=== PATIENT | male | born 1960 | race Caucasian/White ===

== ENCOUNTER 2017-08-07 09:01 | Emergency (ER) | payer BC, OTHER ==
[2017-08-07 09:17] VITALS: BP 126/79
--- NOTE | 2017-08-07 09:39 | UC ---
Skin Complaint HPI - HPI Summary HPI Summary: WOKE UP ONE MORNING ABOUT A MONTH AGO AND NOTICED A BUMP ON RIGHT MIDDLE FINGER. TENDER WHEN PRESSED. NO TRAUMA HE CAN REMEMBER. WORKS AT A [employer]. MOVED A LOT OF LUMBER, METAL ETC. WONDERS IF THERE IS A FB IN THERE. NO NUMBNESS OR TINGLING. - History of Current Complaint Chief Complaint: UCGeneralIllness Time Seen by Provider: 08/07/17 09:20 Stated Complaint: FB IN FINGER Hx Obtained From: Patient Onset/Duration: Sudden Onset, Lasting Weeks, Still Present Timing: Constant Onset Severity: Mild Current Severity: Mild Pain Intensity: 0 - NO PAIN UNLESS PRESSED ON Pain Scale Used: 0-10 Numeric Location: Discrete - RIGHT 3RD FINGER Aggravating Factor(s): Touch Alleviating Factor(s): Nothing Associated Signs & Symptoms: Positive: Tenderness - Allergy/Home Medications Allergies/Adverse Reactions: Allergies Allergy/AdvReac Type Severity Reaction Status Date / Time No Known Allergies Allergy Verified 02/04/17 12:32 Review of Systems Constitutional: Negative Skin: Other - BUMP RIGHT 3RD FINGER Respiratory: Negative Cardiovascular: Negative Gastrointestinal: Negative Musculoskeletal: Negative All Other Systems Reviewed And Are Negative: Yes PMH/Surg Hx/FS Hx/Imm Hx Endocrine History: Diabetes - Surgical History Surgical History: Yes Surgery Procedure, Year, and Place: right shoulder BONE INMPINGEMENT, hiatal hernia REPAIR. FUNDOPLASTY. LASER- EYE - Family History Known Family History: Positive: Cardiac Disease, Hypertension - Social History Alcohol Use: Rare Substance Use Type: None Smoking Status (MU): Never Smoked Tobacco - Immunization History Most Recent Tetanus Shot: 2007 Physical Exam Triage Information Reviewed: Yes Appearance: Well-Appearing, No Pain Distress, Well-Nourished Vital Signs: Initial Vital Signs Temp 98.1 F 08/07/17 09:13 Pulse 70 08/07/17 09:13 Resp 16 08/07/17 09:13 BP 126/79 08/07/17 09:13 Pulse Ox 98 08/07/17 09:13 Vital Signs Reviewed: Yes Eyes: Positive: Conjunctiva Clear ENT: Positive: Hearing grossly normal Neck: Positive: Supple Respiratory: Positive: No respiratory distress, No accessory muscle use Cardiovascular: Positive: Pulses Normal Abdomen Description: Positive: Soft Musculoskeletal: Positive: ROM Intact, No Edema Neurological: Positive: Alert Psychological: Positive: Age Appropriate Behavior Skin: Positive: Other - 5MM NODULE MEDIAL RIGHT 3RD FINGER JUST PROXIMAL TO DIP JOINT. MILDLY TENDER Diagnostics - Radiology RIGHT 3RD FINGER XRAY Xray Interpretation: No Acute Changes Radiology Interpretation Completed By: Radiologist Course/Dx - Diagnoses Provider Diagnoses: CALLUS RIGHT 3RD FINGER Discharge - Discharge Plan Condition: Stable Disposition: HOME Referrals: Sudarshan Scott NP [Primary Care Provider] - If Needed Additional Instructions: YOUR SKIN LESION APPEARS TO BE A CALLUS WHICH LIKELY DEVELOPED OVER TIME DUE TO PRESSURE AND FRICTION ON THE AREA WITH YOUR DAILY ACTIVITIES. XRAY TODAY NEGATIVE FOR FOREIGN BODY. PROTECT THE AREA WITH PADDING TO HELP OFFLOAD PRESSURE ON THE CALLUS. WITH TIME HOPEFULLY THE DISCOMFORT WILL LESSEN. CONTACT YOUR SHIP YARD ELECTRICAL PERSON IF YOU WISH TO DISCUSS MORE AGGRESSIVE TREATMENT OPTIONS.
--- NOTE | 2017-08-07 10:03 | RAD ---
Indication: Mass in the finger evaluate for foreign body. 2 views of the right middle finger demonstrates no evidence of radiopaque foreign body. IMPRESSION: No evidence of radiopaque foreign body is noted.
== END 2017-08-07 10:28 | disposition home or self-care (01) ==
LOC: UCEAST 09:01
DX: L84 Corns and callosities (principal)
CPT/HCPCS: 73140; 99211; G0463

== ENCOUNTER 2017-09-30 10:54 | Emergency (ER) | payer BC, OTHER ==
[2017-09-30 11:20] VITALS: BP 135/86
--- NOTE | 2017-09-30 12:20 | ED ---
Influenza-Like Illness - HPI Summary HPI Summary: Patient is a 57yo otherwise healthy male presenting to the with CC with chills, body aches and slight congestion x 2 days after a flu contact. Denies fevers, sweats, KHAN. He is requesting a flu swab. Denies any other symptoms at this time and appears well on arrival. Denies any N/V/C/D or KHAN. Denies other symptoms. - History of Current Complaint Chief Complaint: UCGeneralIllness Time Seen by Provider: 09/30/17 11:24 Hx Obtained From: Patient Onset/Duration: Sudden Onset Severity: Moderate Associated Signs & Symptoms: F/C Related Hx: Possible Flu/Infectious Exposure - Risk Factors Influenza Risk Factors: Negative - Allergy/Home Medications Allergies/Adverse Reactions: Allergies Allergy/AdvReac Type Severity Reaction Status Date / Time No Known Allergies Allergy Verified 09/30/17 11:12 Home Medications: Home Medications D-Methorphan/PE/Acetaminophen [Daytime Cold-Flu Liquid] 237 ml PO ONCE 09/30/17 [History Confirmed 09/30/17] clonazePAM TAB(*) [KlonoPIN TAB(*)] 0.5 mg PO BID 09/30/17 [History Confirmed ] PMH/Surg Hx/FS Hx/Imm Hx Previously Healthy: Yes Endocrine/Hematology History: Reports: Hx Diabetes Cardiovascular History: Denies: Hx Congestive Heart Failure, Hx Hypertension, Hx Pacemaker/ICD History: Denies: Hx Renal Disease Sensory History: Denies: Hx Hearing Aid Psychiatric History: Denies: Hx Panic Disorder - Surgical History Surgery Procedure, Year, and Place: right shoulder BONE INMPINGEMENT, hiatal hernia REPAIR. FUNDOPLASTY. LASER- EYE - Immunization History Date of Tetanus Vaccine: Unknown Date of Influenza Vaccine: None Hx Pertussis Vaccination: No Immunizations Up to Date: Unable to Obtain/Confirm Infectious Disease History: No Infectious Disease History: Denies: History Other Infectious Disease, Traveled Outside the [place] in Last 30 Days - Family History Known Family History: Positive: Cardiac Disease, Hypertension - Social History Occupation: Employed Full-time Lives: With Family Alcohol Use: Rare Hx Substance Use: No Substance Use Type: Reports: None Hx Tobacco Use: No Smoking Status (MU): Never Smoked Tobacco Review of Systems Positive: Chills. Negative: Fever, Fatigue, Skin Diaphoresis ENT: Negative Cardiovascular: Negative Genitourinary: Negative Positive: no symptoms reported, see HPI Positive: Myalgia Skin: Negative Neurological: Negative All Other Systems Reviewed And Are Negative: Yes Physical Exam Triage Information Reviewed: Yes Vital Signs On Initial Exam: Initial Vitals Temp Pulse Resp BP Pulse Ox 98.5 F 74 16 135/86 97 09/30/17 11:15 18 11:15 09/30/17 11:15 09/30/17 11:15 09/30/17 11:15 Vital Signs Reviewed: Yes Appearance: Positive: Well-Appearing, Well-Nourished Skin: Positive: Warm, Skin Color Reflects Adequate Perfusion Head/Face: Positive: Normal Head/Face Inspection Eyes: Positive: EOMI, PROMISE, Conjunctiva Clear Neck: Positive: Supple, Nontender, No Lymphadenopathy Respiratory/Lung Sounds: Positive: Clear to Auscultation Cardiovascular: Positive: Normal, RRR, Pulses are Symmetrical in both Upper and Lower Extremities Musculoskeletal: Positive: Strength/ROM Intact Neurological: Positive: Normal, Sensory/Motor Intact, Speech Normal Psychiatric: Positive: Affect/Mood Appropriate Diagnostics - Vital Signs Vital Signs Temp Pulse Resp BP Pulse Ox 09/30/17 11:15 98.5 F 74 16 135/86 97 - Laboratory Lab Results: Lab Results 09/30/17 Range/Units 11:31 Influenza A (Rapid) Negative (Negative) Influenza B (Rapid) Negative (Negative) Lab Statement: Any lab studies that have been ordered have been reviewed, and results considered in the medical decision making process. Flu Symptom Course/Dx - Course Course Of Treatment: Patient was swabbed for flu and negative. I have discussed supportive care. He is Ok with this plan and will return for any worsening symptoms. Lungs CTA bilaterally. - Diagnoses Provider Diagnoses: Viral syndrome Discharge - Discharge Plan Condition: Stable Disposition: HOME Patient Education Materials: Viral Syndrome (ED) Referrals: Sudarshan Scott NP [Primary Care Provider] - Additional Instructions: Rest Drink plenty of fluids Tylenol for body aches
== END 2017-09-30 12:00 | disposition home or self-care (01) ==
LOC: UCEAST 10:54
DX: B34.9 Viral infection, unspecified (principal); R68.83 Chills (without fever); M79.1 Myalgia; E11.9 Type 2 diabetes mellitus without complications
CPT/HCPCS: 87502; 99211; G0463

== ENCOUNTER 2018-03-18 18:21 | Emergency (ER) | payer BC, OTHER ==
--- NOTE | 2018-03-18 18:41 | ED ---
Throat Pain/Nasal Congestion - HPI Summary HPI Summary: This is patria Arangojuan documenting for attending Mike Blackmon MD. This patient is a 57 year old M presenting to [facility] with a chief complaint of erythematous swelling of his nose due to bee stings since yesterday. The patient rates the pain 1/10 in severity. Patient reports sore throat, edema of nose, and a plugged left nostril. Patient denies SOB. No PMHx of MRSA. Pt does not have any allergies. Pt took two Benadryls RECREATION COORDINATOR. PMHx of bee sting that led to cellulitis and edema of the LE. - History of Current Complaint Time Seen by Provider: 03/18/18 18:29 Hx Obtained From: Patient Onset/Duration: Sudden Onset, Lasting Days - 2 Severity: Mild Associated Signs And Symptoms: Positive: Nasal Discharge. Negative: Wheezing Related History: Prior ENT Surgery - similar reaction to previous bee sting - Allergies/Home Medications Allergies/Adverse Reactions: Allergies Allergy/AdvReac Type Severity Reaction Status Date / Time No Known Allergies Allergy Verified 03/18/18 18:41 Home Medications: Home Medications ALPRAZolam [Xanax] 0.25 mg PO DAILY PRN 03/18/18 [History Confirmed 03/18/18] PMH/Surg Hx/FS Hx/Imm Hx Endocrine/Hematology History: Reports: Hx Diabetes Cardiovascular History: Denies: Hx Congestive Heart Failure, Hx Hypertension, Hx Pacemaker/ICD History: Denies: Hx Renal Disease Psychiatric History: Denies: Hx Panic Disorder - Surgical History Surgery Procedure, Year, and Place: right shoulder BONE INMPINGEMENT, hiatal hernia REPAIR. FUNDOPLASTY. LASER- EYE - Immunization History Date of Tetanus Vaccine: Unknown Date of Influenza Vaccine: None Infectious Disease History: Denies: History Other Infectious Disease, Traveled Outside the [place] in Last 30 Days - Family History Known Family History: Positive: Cardiac Disease, Hypertension - Social History Alcohol Use: Rare Hx Substance Use: No Substance Use Type: Reports: None Hx Tobacco Use: No Smoking Status (MU): Never Smoked Tobacco Review of Systems Negative: Fever Positive: Sore Throat, Nasal Discharge Negative: Shortness Of Breath Positive: Edema - nose All Other Systems Reviewed And Are Negative: Yes Physical Exam - Summary Physical Exam Summary: General: well-appearing, no pain distress Skin: warm, color reflects adequate perfusion, dry. Nose is swollen and erythematous. Head: normal Eyes: EOMI, PROMISE ENT: normal Neck: supple, nontender Respiratory: CTA, breath sounds present Cardiovascular: RRR Abdomen: soft, nontender Bowel: present Musculoskeletal: normal, strength/ROM intact Neurological: sensory/motor intact, A&O x3 Psychological: affect/mood appropriate Triage Information Reviewed: Yes Vital Signs Reviewed: Yes EENT Course/Dx - Course Course Of Treatment: RX MEDROL DOSE PACK. PATIENT REPORTS HAS HAD CELLULITIS AFTER BEE STINGS IN THE PAST THAT WAS TREATED WITH AN ANTIBIOTIC. RX KEFLEX WRITTEN TO USE IF NEEDED. F/U PMD; RECHECK SOONER IF WORSE. - Diagnoses Provider Diagnoses: Allergy to bee sting Discharge - Sign-Out/Discharge Documenting (check all that apply): Patient Departure - Discharge Plan Condition: Stable Disposition: HOME Prescriptions: Cephalexin CAP* [Keflex CAP*] 500 mg PO QID #40 cap methylPREDNISolone [Medrol Dosepak 4 MG*] 4 mg PO .SEE SEAN INSTRUCTION #1 sean Patient Education Materials: Insect Bite or Sting (ED) Referrals: Sudarshan Scott NP [Primary Care Provider] - Additional Instructions: FOLLOW UP WITH YOUR DOCTOR IF NOT COMPLETELY IMPROVED. GET RECHECKED FOR ANY WORSENING OF YOUR CONDITION OR QUESTIONS OR CONCERNS. - Billing Disposition and Condition Condition: STABLE Disposition: Home
[2018-03-18 18:43] VITALS: BP 138/82
== END 2018-03-18 18:50 | disposition home or self-care (01) ==
LOC: UCEAST 18:21
DX: T63.441A Toxic effect of venom of bees, accidental (unintentional), initial encounter (principal); J02.9 Acute pharyngitis, unspecified; L53.9 Erythematous condition, unspecified; R22.0 Localized swelling, mass and lump, head; E11.9 Type 2 diabetes mellitus without complications; Y92.9 Unspecified place or not applicable
CPT/HCPCS: 99212; G0463

== ENCOUNTER 2018-03-25 19:24 | Emergency (ER) | payer BC, OTHER ==
[2018-03-25 19:35] VITALS: BP 133/83
[2018-03-25] MEDS ORDERED: predniSONE TAB* 20 MG PO ONE (20:04)
--- NOTE | 2018-03-25 20:10 | UC ---
Skin Complaint HPI - HPI Summary HPI Summary: 57 yo male stung multiple times yesterday by "ground bees" red/swollen/itching no throat tightness or sob - History of Current Complaint Chief Complaint: UCGeneralIllness Stated Complaint: MULTIPLE BEE STINGS Hx Obtained From: Patient Onset/Duration: Sudden Onset, Lasting Hours Timing: Constant Onset Severity: Mild Current Severity: Moderate Pain Intensity: 2 Pain Scale Used: 0-10 Numeric Location: Other - UE Character: Swelling, Pruritus, Redness, Raised Aggravating Factor(s): Touch Alleviating Factor(s): OTC Meds Associated Signs & Symptoms: Positive: Tenderness Related History: Insect Bite/Sting - Allergy/Home Medications Allergies/Adverse Reactions: Allergies Allergy/AdvReac Type Severity Reaction Status Date / Time No Known Allergies Allergy Verified 03/25/18 19:27 Home Medications: Home Medications diphenhydrAMINE HCl [Benadryl Allergy 25 MG CAP] 25 mg PO ONCE 03/25/18 [ History Confirmed 03/25/18] Review of Systems Constitutional: Negative Skin: Negative Eyes: Negative ENT: Negative Respiratory: Negative Cardiovascular: Negative Gastrointestinal: Negative Genitourinary: Negative Motor: Negative Neurovascular: Negative Musculoskeletal: Negative Neurological: Negative Psychological: Negative All Other Systems Reviewed And Are Negative: Yes PMH/Surg Hx/FS Hx/Imm Hx Previously Healthy: Yes Endocrine History: Diabetes, Dyslipidemia - Surgical History Surgical History: Yes Surgery Procedure, Year, and Place: right shoulder BONE INMPINGEMENT, hiatal hernia REPAIR. FUNDOPLASTY. LASER- EYE - Family History Known Family History: Positive: Cardiac Disease, Hypertension - Social History Alcohol Use: Rare Substance Use Type: None Smoking Status (MU): Never Smoked Tobacco - Immunization History Most Recent Tetanus Shot: 2007 Physical Exam Triage Information Reviewed: Yes Appearance: Well-Appearing, No Pain Distress, Well-Nourished Vital Signs: Initial Vital Signs Temp 98.3 F 03/25/18 19:29 Pulse 82 03/25/18 19:29 Resp 18 03/25/18 19:29 BP 133/83 03/25/18 19:29 Pulse Ox 96 03/25/18 19:29 Eyes: Positive: Conjunctiva Clear ENT: Positive: Hearing grossly normal, Uvula midline. Negative: Muffled voice, Hoarse voice, Sinus tenderness Neck: Positive: Supple, Nontender, No Lymphadenopathy Respiratory: Positive: Lungs clear, Normal breath sounds, No respiratory distress, No accessory muscle use Cardiovascular: Positive: RRR, No Murmur Musculoskeletal: Positive: ROM Intact, No Edema Neurological: Positive: Alert Psychological Exam: Normal Skin Exam: Other - Redness and induration multiple sting sites on arms Course/Dx - Diagnoses Provider Diagnoses: local reaction to insect stings Discharge - Sign-Out/Discharge Documenting (check all that apply): Patient Departure - Discharge Plan Condition: Stable Disposition: HOME Prescriptions: methylPREDNISolone [Medrol Dosepak 4 MG*] 0 mg PO .SEE SEAN INSTRUCTION #1 tab Patient Education Materials: Insect Bite or Sting (ED) Referrals: Sudarshan Scott, [facility] [Primary Care Provider] - 2 Days (if not improved) Additional Instructions: check your Blood sugar daily on steroid cool compresses benadryl - Billing Disposition and Condition Condition: STABLE Disposition: Home
== END 2018-03-25 20:20 | disposition home or self-care (01) ==
LOC: UCEAST 19:24
DX: T63.441A Toxic effect of venom of bees, accidental (unintentional), initial encounter (principal); E11.9 Type 2 diabetes mellitus without complications; Y92.9 Unspecified place or not applicable
CPT/HCPCS: 99212; G0463; J7512